=== PATIENT | male | born 1970 | race Caucasian/White ===

== ENCOUNTER 2017-05-17 08:44 | Emergency (ER) | payer SELFPAY ==
[2017-05-17 08:49] VITALS: BP 186/106; BMI 24.4
[2017-05-17] MEDS ORDERED: NORFLEX INJ IM ONE (09:10)
[2017-05-17] MEDS ORDERED: TORADOL 60 MG VIAL ONE (09:12)
[2017-05-17] MEDS ORDERED: NORFLEX INJ ONE (09:12)
[2017-05-17] MEDS ORDERED: TORADOL 60 MG VIAL IM ONE (09:15)
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
--- NOTE | 2017-05-17 09:53 | RAD ---
HISTORY: Mid to low back pain. No history of trauma. Study: Lumbar spine with obliques Comparison: None Findings: Four lumbar type vertebra present. Very minimal convex left lumbar scoliosis is noted. Mild facet a rthropathy is noted at L2/L3 and L3/L4 with moderate at L4/S1. The pedicles are intact. No pars def ects are identified. The lateral view demonstrates normal curvature and alignment. The vertebral melonie dies and intervertebral disc spaces are of normal height. Minimal anterior spurring is noted at a co uple of levels. IMPRESSION: 1. Lumbar spondylosis as described above. 2. No acute bony abnormalities are identified. Reported By:
--- NOTE | 2017-05-17 10:04 | RAD ---
HISTORY: Mid to low back pain. Study: AP and lateral thoracic spine Comparison: None Findings: Very minimal convex right thoracic scoliosis is noted. The pedicles are intact. Minimal anterior we dging of a couple of mid to lower thoracic vertebra noted, appearing chronic. Mild disc space narrow ing is noted in the mid to lower thoracic spine. Minimal anterior spurring is noted at a few levels. IMPRESSION: 1. Thoracic spondylosis as described above. 2. No acute bony abnormalities are identified. Reported By:
[2017-05-17 10:51] LABS: BILIRUBIN,URINE NEGATIVE (NEGATIVE); BLOOD/HEMOGLOBIN,URINE 1+ (NEGATIVE); GLUCOSE, URINE NEGATIVE (NEGATIVE); KETONES,URINE NEGATIVE (NEGATIVE); LEUKOCYTE ESTERASE ,URINE NEGATIVE (NEGATIVE); NITRITES,URINE NEGATIVE (NEGATIVE); PROTEIN,URINE NEGATIVE (NEGATIVE); UROBILINOGEN,URINE NORMAL (NORMAL)
[2017-05-17 11:06] LABS: APPEARANCE,URINE CLEAR (CLEAR); BACTERIA,URINE NEGATIVE /HPF (NEGATIVE); COLOR,URINE YELLOW (YELLOW); RBC,URINE 0-2 /HPF (NEGATIVE); SQUAMOUS EPITHELIAL CELL,UR NEGATIVE /HPF (NEGATIVE)
== END 2017-05-17 11:29 | disposition home or self-care (01) ==
LOC: ER 08:50
DX: S29.019A Strain of muscle and tendon of unspecified wall of thorax, initial encounter (principal); S39.012A Strain of muscle, fascia and tendon of lower back, initial encounter; M47.894 Other spondylosis, thoracic region; M47.896 Other spondylosis, lumbar region; V89.2XXA Person injured in unspecified motor-vehicle accident, traffic, initial encounter
CPT/HCPCS: 72072; 72110; 81001; 96372; 99282; J1885; J2360